=== PATIENT | female | born 1975 | race Caucasian/White ===

== ENCOUNTER 2016-10-21 13:07 | Emergency (ER) | payer MEDICAID ==
[2016-10-21 15:07] LABS: microscopic required? NO
[2016-10-21 15:08] LABS: BASOPHIL % 0.4 % (0-2); PLATELET COUNT 330 x10^3mcL (130-400); RED CELL DISTRIBUTION WIDTH 14.1 % (11.5-14.5)
[2016-10-21 15:12] LABS: CALCIUM 9.2 mg/dL (8.5-10.1); CARBON DIOXIDE 30.5 mmol/L (21-32); CHLORIDE SERUM 100 mmol/L (98-107); CREATININE SERUM 0.8 mg/dL (0.6-1.0); GFR1 > 60 mL/min; GLUCOSE SERUM 259 mg/dL (74-106); POTASSIUM SERUM 4.4 mmol/L (3.5-5.1); SODIUM SERUM 138 mmol/L (136-145)
[2016-10-21 15:20] LABS: ALBUMIN 3.3 g/dL (3.4-5.0); ALKALINE PHOSPHATASE 113 U/L (46-116); ALT/SGPT 21 U/L (14-59); AMYLASE 29 U/L (25-115); AST/SGOT 17 U/L (15-37); BILIRUBIN TOTAL 0.3 mg/dL (0.20-1.00); CHOLESTEROL 165 mg/dL (<200); HDL CHOLESTEROL 39 mg/dL (40-60); LIPASE 119 IU/L (73-393); TOTAL PROTEIN, SERUM 7.6 g/dL (6.4-8.2)
[2016-10-21 16:05] LABS: UA SPECIFIC GRAVITY >=1.030 (1.005-1.035); urine erythrocyte NEGATIVE (NEGATIVE)
[2016-10-21 16:17] LABS: AMPHETAMINE QUAL UR NONE DETECTED (NEG <=1000)
[2016-10-21 16:30] VITALS: BP 120/55
== END 2016-10-21 16:30 | disposition home or self-care (01) ==
LOC: ED 13:07
PROVIDERS: Emergency Medicine
DX: R07.89 Other chest pain (principal); E03.9 Hypothyroidism, unspecified; E66.9 Obesity, unspecified; I10 Essential (primary) hypertension; E11.65 Type 2 diabetes mellitus with hyperglycemia; E46 Unspecified protein-calorie malnutrition; R51 Headache
CPT/HCPCS: 80307; 83880; J1100; J1885; Q0092